=== PATIENT | female | born 1975 | race Caucasian/White ===

== ENCOUNTER 2016-09-30 17:29 | Observation (INO) | payer OTHER ==
[2016-09-30 17:29] VITALS: BMI 29.8
--- NOTE | 2016-09-30 17:44 | ED PDOC ---
HPI: Chest Pain Time Seen by Provider: 09/30/16 17:44 Chief Complaint (Nursing): Chest Pain Chief Complaint (Provider): chest pain History Per: Patient Additional Complaint(s): 41-year-old female presents to emergency Department with left-sided chest pain for the past 3 days. Patient complains of mild shortness of breath but denies dyspnea on exertion. No associated coughing or congestion. Patient denies any radiation of pain. She rates current pain as 5/10. Patient also states she has mild headache with no associated vision changes or dizziness. Past Medical History Reviewed: Historical Data, Nursing Documentation, Vital Signs Vital Signs: Last Vital Signs Temp 98.3 F 09/30/16 18:00 Pulse 72 09/30/16 17:48 Resp 16 09/30/16 17:36 BP 116/85 09/30/16 17:36 Pulse Ox 99 09/30/16 19:18 - Medical History PMH: Asthma, Pneumonia - Surgical History Other surgeries: abdominoplasty, hysterectomy - Family History Family History: States: CAD (mother) - Living Arrangements Living Arrangements: With Family - Social History Current smoker - smoking cessation education provided: No Alcohol: None Drugs: Denies - Home Medications Home Medications: Ambulatory Orders Medication Instructions Recorded No Known Home Med 09/30/16 - Allergies Allergies/Adverse Reactions: Allergies Allergy/AdvReac Type Severity Reaction Status Date / Time walnut Allergy RASH Verified 09/30/16 17:36 NELI Risk Score for UA/NSTEMI - NELI Risk Score Age > 64: NO 3 or more CAD Risk Factors: NO Known CAD (Stenosis greater than 50%): NO Aspirin use in past 7 days: NO Severe Angina: NO EKG ST changes greater than 0.5mm: NO Positive Cardiac Marker: NO NELI Score: 0 Risk %: 5% Curb-65 Severity Score - CURB-65 Severity Score Confusion: No Bun >19mg/dl (>7mmol/L): No Respiratory Rate greater than/equal to 30: No Systolic BP <90 or Diastolic BP less than/equal 60mmHg: No Age >64: No Curb-65 Score: 0 Percentage 30-day mortality: 0.6% Wells Criteria for PE - Wells Criteria for Pulmonary Embolism Clinical Signs and Symptoms of DVT: No P.E is #1 Diagnosis, or Equally Likely: No Heart Rate >100: No Immobilization at least 3 days;Surgery previous 4 weeks: No Previous, objectively diagnosed PE or DVT: No Hemoptysis: No Malignancy w/treatment within 6 months, or palliative: No Total Score: 0 Review of Systems ROS Statement: Except As Marked, All Systems Reviewed And Found Negative Constitutional: Negative for: Fever Cardiovascular: Positive for: Chest Pain. Negative for: Palpitations, Orthopnea , Edema, Light Headedness Respiratory: Positive for: Shortness of Breath (slight). Negative for: Cough, SOB with Exertion, Wheezing Gastrointestinal: Negative for: Nausea, Vomiting, Abdominal Pain Neurological: Positive for: Headache (mild). Negative for: Dizziness Physical Exam - Reviewed Nursing Documentation Reviewed: Yes Vital Signs Reviewed: Yes - Physical Exam Appears: Positive for: Well, Non-toxic, No Acute Distress Skin: Positive for: Normal Color. Negative for: Rash Eye Exam: Positive for: Normal appearance, EOMI, PERRL Cardiovascular/Chest: Positive for: Regular Rate, Rhythm. Negative for: Murmur Respiratory: Positive for: Normal Breath Sounds. Negative for: Wheezing, Respiratory Distress Extremity: Positive for: Normal ROM. Negative for: Pedal Edema Neurologic/Psych: Positive for: Alert, Oriented - Laboratory Results Result Diagrams: 09/30/16 18:17 09/30/16 18:17 Urine POC: Negative (had hysterectomy) - ECG Interpretation Of ECG: NSR 88b pm, no acute finding, reviewed by PA and ED attending. O2 Sat by Pulse Oximetry: 99 Pulse Ox Interpretation: Normal - Other Rad bedside chest X-Ray: Interpreted by Me, Viewed By Me X-Ray Interpretation: no infiltrate, no acute finding Medical Decision Making Medical Decision Makin41 year old with left sided chest pain Plan: EKG CXR CMP CBC Trop IVF PO tylenol Headache resolved with tylenol. PMD is Dr. Mayen, case was discussed with him , he states to admit patient to tele-obs. Patient is aware of and agrees with admission. Disposition - Clinical Impression Clinical Impression: Chest pain - Patient ED Disposition Is Patient to be Admitted: Yes - Disposition Disposition Time: 19:35 Condition: FAIR - Pt Status Changed To: Hospital Disposition Of: Observation - POA Present On Arrival: None Results - Lab Results Lab Results: 09/30/16 09/30/16 18:17 18:17 WBC 7.4 RBC 4.96 Hgb 13.8 Hct 42.1 MCV 84.8 MCH 27.9 MCHC 32.9 L RDW 13.8 Plt Count 207 MPV 10.1 Neut % (Auto) 58.1 Lymph % (Auto) 29.0 Bond % (Auto) 8.8 Eos % (Auto) 3.4 Baso % (Auto) 0.7 Neut # 4.3 Lymph # 2.2 Bond # 0.7 Eos # 0.3 Baso # 0.1 Sodium 136 Potassium 4.2 Chloride 104 Carbon Dioxide 22 Anion Gap 14 BUN 10 Creatinine 0.6 L Est GFR ( Amer) > 60 Est GFR (Non-Af Amer) > 60 Random Glucose 112 H Calcium 8.7 Total Bilirubin 0.5 AST 29 ALT 30 Alkaline Phosphatase 69 Troponin I < 0.0120 Total Protein 6.9 Albumin 3.9 Globulin 2.9 Albumin/Globulin Ratio 1.4
[2016-09-30] MEDS ORDERED: Sodium Chloride 0.9% 1,000 ML IV STA (17:55)
[2016-09-30 18:23] LABS: BASO # 0.1 K/uL (0.0-0.2); BASO % 0.7 % (0.0-2.0); EOS # 0.3 K/uL (0.0-0.7); EOS % 3.4 % (0.0-4.0); HEMATOCRIT 42.1 % (34.0-47.0); LYMPH # 2.2 K/uL (1.0-4.3); MEAN CELL VOLUME 84.8 fl (81.0-99.0); MEAN CORPUSCULAR HEMOGLOBIN 27.9 pg (27.0-31.0); MEAN CORPUSCULAR HGB CONC 32.9 g/dL (33.0-37.0); MEAN PLATELET VOLUME 10.1 fl (7.2-11.7); MONO # 0.7 K/uL (0.0-0.8); MONO % 8.8 % (0.0-10.0); NEUT # 4.3 K/uL (1.8-7.0); NEUT % 58.1 % (50.0-75.0); NRBC % 0.1 % (0.0-0.0); RED CELL DISTRIBUTION WIDTH 13.8 % (11.5-14.5); WHITE BLOOD COUNT 7.4 K/uL (4.8-10.8)
[2016-09-30 18:47] LABS: ALB/GLOB RATIO 1.4 (1.0-2.1); ALKALINE PHOSPHATASE 69 U/L (38-126); ALT/SGPT 30 U/L (9-52); AST/SGOT 29 U/L (14-36); BILIRUBIN,TOTAL 0.5 mg/dl (0.2-1.3); BLOOD UREA NITROGEN 10 mg/dl (7-17); CALCIUM 8.7 mg/dL (8.4-10.2); CARBON DIOXIDE 22 mmol/L (22-30); CHLORIDE 104 mmol/L (98-107); GFR AFRICAN-AMERICAN > 60; GLUCOSE,RANDOM 112 mg/dL (65-105); POTASSIUM 4.2 MMOL/L (3.6-5.0); SODIUM 136 mmol/l (132-148); TOTAL PROTEIN 6.9 G/DL (6.3-8.2)
[2016-10-01 07:46] VITALS: RESP 20
--- NOTE | 2016-10-01 08:57 | RAD ---
HISTORY: Chest pain. Portable study 19:13. COMPARISON: 06/18/2015. FINDINGS: LUNGS: No active pulmonary disease. PLEURA: No significant pleural effusion identified, no pneumothorax apparent. CARDIOVASCULAR: Normal. OSSEOUS STRUCTURES: No significant abnormalities. VISUALIZED UPPER ABDOMEN: Normal. OTHER FINDINGS: None. IMPRESSION: No active disease. No significant interval change compared to the prior examination(s). Concordant results with the preliminary interpretation rendered by the emergency department physician procedure.
[2016-10-01 12:10] VITALS: BP 123/85; PULSE 71; TEMP 97.7; O2SAT 99
--- NOTE | 2016-10-01 12:27 | CARD ---
APPROVED REPORT EKG Measurement Heart [id number] <Conclusion> Normal sinus rhythm Normal ECG
--- NOTE | 2016-10-01 13:12 | CP.PCM.HP ---
<Carolina Bolden - Last Filed: 10/01/16 14:08> History of Present Illness - History of Present Illness History of Present Illness: Evaluated with attending 41yo F with PMHx asthma and pneumonia admitted for chest pain. chest pain x3 days, a/w SOB, no radiation, currently resolved. Denies palpitations. reports some anxiety d/t recent PNA. PMHx: Asthma Allergies: NKDA Social Hx: Denied Smoking/Drugs/EtOH Present on Admission - Present on Admission Any Indicators Present on Admission: No Review of Systems - Constitutional Constitutional: absent: Chills, Fever - Cardiovascular Cardiovascular: Chest Pain - Respiratory Respiratory: Dyspnea - Gastrointestinal Gastrointestinal: absent: Abdominal Pain, Diarrhea, Nausea, Vomiting - Genitourinary Genitourinary: absent: Dysuria, Hematuria - Musculoskeletal Musculoskeletal: absent: Back Pain - Neurological Neurological: absent: Headaches Past Patient History - Infectious Disease Hx of Infectious Diseases: None - Past Medical History & Family History Past Medical History?: Yes - Past Social History Smoking Status: Never Smoked - CARDIAC Hx Cardiac Disorders: No - PULMONARY Hx Respiratory Disorders: Yes Hx Asthma: Yes Hx Pneumonia: Yes - NEUROLOGICAL Hx Neurological Disorder: No - HEENT Hx HEENT Problems: No - RENAL Hx Chronic Kidney Disease: No - ENDOCRINE/METABOLIC Hx Endocrine Disorders: No - HEMATOLOGICAL/ONCOLOGICAL Hx Blood Disorders: No Hx AIDS: No Hx Human Immunodeficiency Virus (HIV): No - INTEGUMENTARY Hx Dermatological Problems: No - MUSCULOSKELETAL/RHEUMATOLOGICAL Hx Falls: No - GASTROINTESTINAL Hx Gastrointestinal Disorders: No - GENITOURINARY/GYNECOLOGICAL Hx Genitourinary Disorders: No - PSYCHIATRIC Hx Psychophysiologic Disorder: No Hx Substance Use: No - SURGICAL HISTORY Hx Surgeries: Yes Hx Hysterectomy: Yes (partial) Other/Comment: Abdominoplasty - ANESTHESIA Hx Anesthesia: No Hx Anesthesia Reactions: No Hx Malignant Hyperthermia: No Meds Allergies/Adverse Reactions: Allergies Allergy/AdvReac Type Severity Reaction Status Date / Time walnut Allergy RASH Verified 09/30/16 17:36 Physical Exam - Constitutional Appears: Non-toxic, No Acute Distress - Head Exam Head Exam: ATRAUMATIC, NORMAL INSPECTION - Eye Exam Eye Exam: Normal appearance - ENT Exam ENT Exam: Mucous Membranes Moist - Neck Exam Neck exam: Positive for: Normal Inspection - Respiratory Exam Respiratory Exam: Clear to Auscultation Bilateral - Cardiovascular Exam Cardiovascular Exam: REGULAR RHYTHM - GI/Abdominal Exam GI & Abdominal Exam: Normal Bowel Sounds, Soft - Extremities Exam Extremities exam: Positive for: normal inspection - Neurological Exam Neurological exam: Alert, Oriented x3 - Skin Skin Exam: Dry, Warm Results - Vital Signs Recent Vital Signs: Last Vital Signs Temp 97.7 F 10/01/16 12:09 Pulse 71 10/01/16 12:09 Resp 20 10/01/16 12:09 BP 123/85 10/01/16 12:09 Pulse Ox 99 10/01/16 12:09 - Labs Result Diagrams: 09/30/16 18:17 09/30/16 18:17 Labs: Laboratory Results - last 24 hr 10/01/16 10/01/16 03:23 12:15 Troponin I 0.0620 < 0.0120 Assessment & Plan - Assessment and Plan (Free Text) Assessment: 41yo F with PMHx asthma and pneumonia admitted for chest pain. chest pain -ECHO -trend troponin -ASA asthma -c/w home meds DVT ppx -SCDs Decision To Admit - Pt Status Changed To: Hospital Disposition Of: Observation - . Bed Request Type: Telemetry Admitting Physician: Mukul Mayen <Mukul Mayen - Last Filed: 10/04/16 11:14> Results - Vital Signs Recent Vital Signs: Last Vital Signs Temp 97.7 F 10/01/16 12:09 Pulse 71 10/01/16 12:09 Resp 20 10/01/16 12:09 BP 123/85 10/01/16 12:09 Pulse Ox 99 10/01/16 12:09 - Labs Result Diagrams: 09/30/16 18:17 09/30/16 18:17 Assessment & Plan - Assessment and Plan (Free Text) Plan: I was present during evaluation and examined patient directly. I discussed with patient and Dr Figueroa and discharge patient same day. advised follow up in office, Mukul Mayen M.D.
--- NOTE | 2016-10-01 14:09 | CARD ---
APPROVED REPORT EXAM: Two-dimensional and M-mode echocardiogram with Doppler and color Doppler. Other Information Quality : GoodRhythm : NSR INDICATION Chest Pain 2D DIMENSIONS IVSd0.93 (0.7-1.1cm)LVDd3.77 (3.9-5.9cm) LVOT Diameter1.84 (1.8-2.4cm)PWd0.79 (0.7-1.1cm) IVSs0.97 (0.8-1.2cm)LVDs2.33 (2.5-4.0cm) FS (%) 38.2 %PWs0.95 (0.8-1.2cm) M-Mode DIMENSIONS Left Atrium (MM)3.53 (2.5-4.0cm)IVSd0.47 (0.7-1.1cm) Aortic Root3.00 (2.2-3.7cm)LVDd5.41 (4.0-5.6cm) Aortic Cusp Exc.1.68 (1.5-2.0cm)PWd0.74 (0.7-1.1cm) IVSs1.03 cmFS (%) 45 % LVDs2.97 (2.0-3.8cm)PWs1.18 cm Mitral Valve MV E Xgchaqzs49.5cm/sMV DECEL [id number] A Osxuaucv27.4cm/s MV IJM06fpY/A ratio1.0MVA (PHT)4.47cm2 TDI Lateral E' Peak V8.72cm/sMedial E' Peak V7.25cm/sE/Lateral E'7.7 E/Medial E'9.3 Pulmonary Valve PV Peak Wcuoesmq14.0cm/s LEFT VENTRICLE The left ventricle is normal in size. There is normal left ventricular wall thickness. The left ventricular function is normal. The left ventricular ejection - 75%. There is normal LV segmental wall motion. Transmitral Doppler flow pattern is Grade I-abnormal relaxation pattern. No left ventricle thrombus noted on this study. There is no ventricular septal defect visualized. There is no left ventricular aneurysm. There is no mass noted in the left ventricle. RIGHT VENTRICLE The right ventricle is normal size. There is normal right ventricular wall thickness. The right ventricular systolic function is normal. ATRIA The left atrium size is normal. There is no thrombus suspected in the left atrium. The right atrium size is normal. The interatrial septum is intact with no evidence for an atrial septal defect. AORTIC VALVE The aortic valve is normal in structure and function. No aortic regurgitation is present. There is no aortic valvular stenosis. MITRAL VALVE The mitral valve is normal in structure and function. There is no evidence of mitral valve prolapse. There is no mitral valve stenosis. Mitral regurgitation is trivial. TRICUSPID VALVE The tricuspid valve is normal in structure and function. There is trace tricuspid regurgitation. There is no tricuspid valve prolapse or vegetation. There is no tricuspid valve stenosis. PULMONIC VALVE The pulmonary valve is normal in structure and function. There is no pulmonic valvular regurgitation. GREAT VESSELS The aortic root is normal in size. The IVC is normal in size and collapses >50% with inspiration. PERICARDIAL EFFUSION The pericardium appears normal. There is no pleural effusion. <Conclusion> The left ventricle is normal in size and wall thickness. The left ventricular function is normal. The left ventricular ejection - 75%. The left atrium, right ventricle and right atrium are normal in size. The mitral, aortic and tricuspid valves are normal.
[2016-10-01] MEDS ORDERED: Albuterol 0.083% Inhal Sol (2.5 mg/3 mL) UD INH PRN (14:19)
--- NOTE | 2016-10-01 14:22 | CP.PCM.DIS ---
<Carolina Bolden - Last Filed: 10/01/16 14:20> Provider - Provider Date of Admission: 09/30/16 19:22 Attending physician: Mukul Mayen MD Time Spent in preparation of Discharge (in minutes): 20 Diagnosis - Discharge Diagnosis (1) Chest pain Status: Acute Hospital Course - Lab Results Lab Results: Most Recent Lab Values WBC 7.4 K/uL (4.8-10.8) 09/30/16 18:17 RBC 4.96 Mil/uL (3.80-5.20) 09/30/16 18:17 Hgb 13.8 g/dL (12.0-16.0) 09/30/16 18:17 Hct 42.1 % (34.0-47.0) 09/30/16 18:17 MCV 84.8 fl (81.0-99.0) 09/30/16 18:17 MCH 27.9 pg (27.0-31.0) 09/30/16 18:17 MCHC 32.9 g/dL (33.0-37.0) L 09/30/16 18:17 RDW 13.8 % (11.5-14.5) 09/30/16 18:17 Plt Count 207 K/uL (130-400) 09/30/16 18:17 MPV 10.1 fl (7.2-11.7) 09/30/16 18:17 Neut % (Auto) 58.1 % (50.0-75.0) 09/30/16 18:17 Lymph % (Auto) 29.0 % (20.0-40.0) 09/30/16 18:17 [place] % (Auto) 8.8 % (0.0-10.0) 09/30/16 18:17 Eos % (Auto) 3.4 % (0.0-4.0) 09/30/16 18:17 Baso % (Auto) 0.7 % (0.0-2.0) 09/30/16 18:17 Neut # 4.3 K/uL (1.8-7.0) 09/30/16 18:17 Lymph # 2.2 K/uL (1.0-4.3) 09/30/16 18:17 [place] # 0.7 K/uL (0.0-0.8) 09/30/16 18:17 Eos # 0.3 K/uL (0.0-0.7) 09/30/16 18:17 Baso # 0.1 K/uL (0.0-0.2) 09/30/16 18:17 Sodium 136 mmol/l (132-148) 09/30/16 18:17 Potassium 4.2 MMOL/L (3.6-5.0) 09/30/16 18:17 Chloride 104 mmol/L (98-107) 09/30/16 18:17 Carbon Dioxide 22 mmol/L (22-30) 09/30/16 18:17 Anion Gap 14 (10-20) 09/30/16 18:17 BUN 10 mg/dl (7-17) 09/30/16 18:17 Creatinine 0.6 mg/dL (0.7-1.2) L 09/30/16 18:17 Est GFR ( Amer) > 60 09/30/16 18:17 Est GFR (Non-Af Amer) > 60 09/30/16 18:17 POC Glucose (mg/dL) 118 mg/dL (65-110) H 09/30/16 17:50 Random Glucose 112 mg/dL (65-105) H 09/30/16 18:17 Calcium 8.7 mg/dL (8.4-10.2) 09/30/16 18:17 Total Bilirubin 0.5 mg/dl (0.2-1.3) 09/30/16 18:17 AST 29 U/L (14-36) 09/30/16 18:17 ALT 30 U/L (9-52) 09/30/16 18:17 Alkaline Phosphatase 69 U/L (38-126) 09/30/16 18:17 Troponin I < 0.0120 ng/mL (0.00-0.120) 10/01/16 12:15 Total Protein 6.9 G/DL (6.3-8.2) 09/30/16 18:17 Albumin 3.9 g/dL (3.5-5.0) 09/30/16 18:17 Globulin 2.9 gm/dL (2.2-3.9) 09/30/16 18:17 Albumin/Globulin Ratio 1.4 (1.0-2.1) 09/30/16 18:17 - Hospital Course Hospital Course: 41yo F with PMHx asthma and pneumonia admitted for chest pain. ECHO showed no abnormalities. Troponin x3 were negative. Chest pain resolved at time of d/c, may be 2/2 anxiety d/t recent pneumonia and pt felt similar symptoms when she was recently ill. Lung auscultation clear b/l. Discharge Exam - Head Exam Head Exam: ATRAUMATIC, NORMAL INSPECTION Discharge Plan - Follow Up Plan Condition: FAIR Disposition: HOME/ ROUTINE Instructions: Chest Pain (DC) Additional Instructions: follow up with PCP within [address] Figueroa and will follow up patient as outpatientt.. Mukul Mayen M.D. Referrals: Mukul Mayen MD [Staff Provider] - <Mukul Mayen - Last Filed: 10/04/16 11:14> Provider - Provider Date of Admission: 09/30/16 19:22 Attending physician: Mukul Mayen MD Hospital Course - Lab Results Lab Results: Most Recent Lab Values WBC 7.4 K/uL (4.8-10.8) 09/30/16 18:17 RBC 4.96 Mil/uL (3.80-5.20) 09/30/16 18:17 Hgb 13.8 g/dL (12.0-16.0) 09/30/16 18:17 Hct 42.1 % (34.0-47.0) 09/30/16 18:17 MCV 84.8 fl (81.0-99.0) 09/30/16 18:17 MCH 27.9 pg (27.0-31.0) 09/30/16 18:17 MCHC 32.9 g/dL (33.0-37.0) L 09/30/16 18:17 RDW 13.8 % (11.5-14.5) 09/30/16 18:17 Plt Count 207 K/uL (130-400) 09/30/16 18:17 MPV 10.1 fl (7.2-11.7) 09/30/16 18:17 Neut % (Auto) 58.1 % (50.0-75.0) 09/30/16 18:17 Lymph % (Auto) 29.0 % (20.0-40.0) 09/30/16 18:17 [place] % (Auto) 8.8 % (0.0-10.0) 09/30/16 18:17 Eos % (Auto) 3.4 % (0.0-4.0) 09/30/16 18:17 Baso % (Auto) 0.7 % (0.0-2.0) 09/30/16 18:17 Neut # 4.3 K/uL (1.8-7.0) 09/30/16 18:17 Lymph # 2.2 K/uL (1.0-4.3) 09/30/16 18:17 [place] # 0.7 K/uL (0.0-0.8) 09/30/16 18:17 Eos # 0.3 K/uL (0.0-0.7) 09/30/16 18:17 Baso # 0.1 K/uL (0.0-0.2) 09/30/16 18:17 Sodium 136 mmol/l (132-148) 09/30/16 18:17 Potassium 4.2 MMOL/L (3.6-5.0) 09/30/16 18:17 Chloride 104 mmol/L (98-107) 09/30/16 18:17 Carbon Dioxide 22 mmol/L (22-30) 09/30/16 18:17 Anion Gap 14 (10-20) 09/30/16 18:17 BUN 10 mg/dl (7-17) 09/30/16 18:17 Creatinine 0.6 mg/dL (0.7-1.2) L 09/30/16 18:17 Est GFR ( Amer) > 60 09/30/16 18:17 Est GFR (Non-Af Amer) > 60 09/30/16 18:17 POC Glucose (mg/dL) 118 mg/dL (65-110) H 09/30/16 17:50 Random Glucose 112 mg/dL (65-105) H 09/30/16 18:17 Calcium 8.7 mg/dL (8.4-10.2) 09/30/16 18:17 Total Bilirubin 0.5 mg/dl (0.2-1.3) 09/30/16 18:17 AST 29 U/L (14-36) 09/30/16 18:17 ALT 30 U/L (9-52) 09/30/16 18:17 Alkaline Phosphatase 69 U/L (38-126) 09/30/16 18:17 Troponin I < 0.0120 ng/mL (0.00-0.120) 10/01/16 12:15 Total Protein 6.9 G/DL (6.3-8.2) 09/30/16 18:17 Albumin 3.9 g/dL (3.5-5.0) 09/30/16 18:17 Globulin 2.9 gm/dL (2.2-3.9) 09/30/16 18:17 Albumin/Globulin Ratio 1.4 (1.0-2.1) 09/30/16 18:17
== END 2016-10-01 16:15 | disposition home or self-care (01) ==
LOC: H.ER 17:29 → H.ERHOLD 19:22 → H.TEL 23:06
PROVIDERS: ADMIT Family Medicine; ATTEND Family Medicine
DX: R07.9 Chest pain, unspecified (principal); J45.909 Unspecified asthma, uncomplicated; Z91.018 Allergy to other foods

== ENCOUNTER 2017-03-14 15:21 | Emergency (ER) | payer OTHER ==
[2017-03-14 15:21] VITALS: BMI 29.8
[2017-03-14 15:33] VITALS: BP 145/86; PULSE 79; RESP 16; TEMP 98.3; O2SAT 99
--- NOTE | 2017-03-14 15:59 | ED PDOC ---
HPI: Back Time Seen by Provider: 03/14/17 15:29 Chief Complaint (Nursing): Back Pain Chief Complaint (Provider): Neck and back pain History Per: Patient History/Exam Limitations: no limitations Onset/Duration Of Symptoms: Days (x2 weeks) Current Symptoms Are (Timing): Still Present Additional Complaint(s): Karla is a 41 y/o female who presents to the ED complaining of neck pain which radiates down to her lower back. Her neck is painful to the touch. She took Aleve 8 Hours at 7:30a. Of note patient has a history of high blood pressure and noticed it was more elevated than usual. Denies any direct injury or trauma. PMD: Mukul Mayen MD Past Medical History Reviewed: Historical Data, Nursing Documentation, Vital Signs Vital Signs: Last Vital Signs Temp 98.3 F 03/14/17 15:25 Pulse 79 03/14/17 15:25 Resp 16 03/14/17 15:25 BP 145/86 03/14/17 15:25 Pulse Ox 99 03/14/17 15:25 - Medical History PMH: Asthma, HTN, Pneumonia Denies: HIV, Chronic Kidney Disease - Surgical History Other surgeries: Hysterectomy - Family History Family History: States: CAD (mother) - Immunization History Hx Influenza Vaccination: Yes - Home Medications Home Medications: Ambulatory Orders Medication Instructions Recorded Cyclobenzaprine [Cyclobenzaprine 10 mg PO Q8H #20 tab 03/14/17 HCl] - Allergies Allergies/Adverse Reactions: Allergies Allergy/AdvReac Type Severity Reaction Status Date / Time walnut Allergy RASH Verified 09/30/16 17:36 Review of Systems ROS Statement: Except As Marked, All Systems Reviewed And Found Negative Musculoskeletal: Positive for: Neck Pain (Left sided), Back Pain Physical Exam - Reviewed Nursing Documentation Reviewed: Yes Vital Signs Reviewed: Yes - Physical Exam Appears: Positive for: Well, Non-toxic, No Acute Distress Head Exam: Positive for: ATRAUMATIC, NORMAL INSPECTION, NORMOCEPHALIC Skin: Positive for: Normal Color, Warm, DRY Eye Exam: Positive for: Normal appearance Neck: Positive for: Pain On Movement Of Neck Back: Positive for: Normal Inspection, Muscle Spasm (Left paraspinal cervical spine). Negative for: Vertebral Tenderness Neurologic/Psych: Positive for: Alert, Oriented - ECG O2 Sat by Pulse Oximetry: 99 (RA) Pulse Ox Interpretation: Normal Medical Decision Making Medical Decision Making: Time: 15:54 Initial Plan: - Cyclobenzaprine 10 mg PO - Ketorolac 60 mg IM - Cervical Spine AP & Lateral X-Ray results without acute abnormalities. XR discussed in detail with patient. All questions answered. Upon provider reevaluation patient is medically stable, and requires no further treatment in the ED at this time. Patient will be discharged home. Counseling was provided and all questions were answered regarding diagnosis and need for follow up with PMD. There is agreement to discharge plan. Return if symptoms persist or worsen. Scribe Attestation: Documented by He Meíja, acting as a scribe for Desi Harden PA-C Provider Scribe Attestation: All medical record entries made by the Scribe were at my direction and personally dictated by me. I have reviewed the chart and agree that the record accurately reflects my personal performance of the history, physical exam, medical decision making, and the department course for this patient. I have also personally directed, reviewed, and agree with the discharge instructions and disposition. Disposition - Clinical Impression Clinical Impression: Muscle spasm - Patient ED Disposition Is Patient to be Admitted: No Counseled Patient/Family Regarding: Diagnosis, Need For Followup, Rx Given - Disposition Disposition: Routine/Home Disposition Time: 17:34 Condition: GOOD Prescriptions: Cyclobenzaprine [Cyclobenzaprine HCl] 10 mg PO Q8H #20 tab Instructions: Muscle Spasm (ED) Forms: [employer] (Swedish), [employer] ED School/Work Excuse
--- NOTE | 2017-03-14 18:42 | RAD ---
PROCEDURE: Cervical Spine Radiographs. HISTORY: Pain. COMPARISON: None. FINDINGS: BONES: Alignment maintained. No fracture. Dens Intact. DISC SPACES: Mild degenerative changes primarily non marginal osteophyte formation C5-6 and C6-7. SOFT TISSUES: Normal. No prevertebral soft tissue swelling. OTHER FINDINGS: None. IMPRESSION: No acute findings related to/accounting for the clinical presentation. Additional benign and/or incidental findings described above. Please note: No preliminary report/ innterpretation of this examination provided by emergency department personnel.
== END 2017-03-14 18:07 | disposition home or self-care (01) ==
LOC: H.ER 15:21
DX: M54.2 Cervicalgia (principal)
CPT/HCPCS: 72040; 96372; 99282; J1885

== ENCOUNTER 2017-10-30 09:17 | Emergency (ER) | payer OTHER ==
[2017-10-30 09:20] VITALS: BMI 27.3
--- NOTE | 2017-10-30 09:29 | ED PDOC ---
HPI: Back Time Seen by Provider: 10/30/17 09:24 Chief Complaint (Nursing): Back Pain History Per: Patient Onset/Duration Of Symptoms: Other (2 weeks) Current Symptoms Are (Timing): Still Present Quality Of Discomfort: Aching Severity: Moderate Pain Scale Rating Of: 4 Previous Symptoms: Back Pain Associated Symptoms: None Exacerbating Factor(s): Movement, Sitting Additional Complaint(s): Low back pain across lower back radiating down both legs. Has been doing heavy lifting and pushing. No trauma. No weakness or parasthesia. No urinary sxs.No fever. Past Medical History Vital Signs: Last Vital Signs Temp 97.7 F 10/30/17 09:20 Pulse 79 10/30/17 09:20 Resp 17 10/30/17 09:20 BP 132/85 10/30/17 09:20 Pulse Ox 99 10/30/17 09:20 - Medical History PMH: Asthma, HTN, Pneumonia Denies: HIV, Chronic Kidney Disease - Family History Family History: States: Unknown Family Hx, CAD (mother) - Immunization History Hx Influenza Vaccination: Yes - Home Medications Home Medications: Ambulatory Orders Medication Instructions Recorded Cyclobenzaprine [Cyclobenzaprine 10 mg PO Q8H #20 tab 03/14/17 HCl] Cyclobenzaprine [Cyclobenzaprine 10 mg PO TID #10 tab 10/30/17 HCl] Lidocaine 5% [Lidoderm] 1 ea TD DAILY 7 Days #7 patch 10/30/17 Naproxen [Naprosyn] 500 mg PO Q12H #20 tab 10/30/17 - Allergies Allergies/Adverse Reactions: Allergies Allergy/AdvReac Type Severity Reaction Status Date / Time walnut Allergy RASH Verified 10/30/17 09:25 Review of Systems Constitutional: Negative for: Fever Genitourinary Female: Negative for: Dysuria, Frequency Musculoskeletal: Positive for: Back Pain Neurological: Negative for: Weakness, Numbness Physical Exam - Physical Exam Appears: Positive for: Non-toxic, Uncomfortable Skin: Positive for: Normal Color, Warm, DRY Gastrointestinal/Abdominal: Negative for: Tenderness Back: Positive for: Normal Inspection, Muscle Spasm (Bilat lumbar area). Negative for: Vertebral Tenderness Neurologic/Psych: Positive for: Alert, Oriented. Negative for: Motor/Sensory Deficits - ECG O2 Sat by Pulse Oximetry: 99 - Progress Re-evaluation Time: 14:00 Condition: Improved Disposition - Clinical Impression Clinical Impression: Back strain - Patient ED Disposition Is Patient to be Admitted: No Counseled Patient/Family Regarding: Studies Performed, Diagnosis, Need For Followup, Rx Given - Disposition [facility]errals: [facility] [Outside] Disposition: Routine/Home Disposition Time: 14:00 Condition: FAIR Prescriptions: Cyclobenzaprine [Cyclobenzaprine HCl] 10 mg PO TID #10 tab Lidocaine 5% [Lidoderm] 1 ea TD DAILY 7 Days #7 patch Naproxen [Naprosyn] 500 mg PO Q12H #20 tab Instructions: Muscle Strain (DC), Low Back Pain in Adults Forms: [facility] ([place])
[2017-10-30] MEDS ORDERED: Lidocaine 5% Patch TD STA (10:32)
--- NOTE | 2017-10-30 14:24 | CT ---
PROCEDURE: CT Abdomen and Pelvis without intravenous contrast HISTORY: r/o kidney stone COMPARISON: CT scan of the abdomen and pelvis dated 07/13/2015. TECHNIQUE: Contiguous images were obtained from the domes of the diaphragms to the upper thighs without the administration of intravenous contrast. Oral contrast was not administered. Radiation dose: Total exam DLP = 477.8 mGy-cm. This CT exam was performed using one or more of the following dose reduction techniques: Automated exposure control, adjustment of the mA and/or kV according to patient size, and/or use of iterative reconstruction technique. FINDINGS: LOWER THORAX: Unremarkable. LIVER: Unremarkable. No gross lesion or ductal dilatation. GALLBLADDER AND BILE DUCTS: Unremarkable. PANCREAS: Unremarkable. No gross lesion or ductal dilatation. SPLEEN: Unremarkable. ADRENALS: Unremarkable. No mass. KIDNEYS AND URETERS: Unremarkable. No hydronephrosis. No solid mass. VASCULATURE: Unremarkable. No aortic aneurysm. BOWEL: Unremarkable. No obstruction. No gross mural thickening. APPENDIX: Unremarkable. Normal appendix. PERITONEUM: Small fat containing umbilical hernia. Prior abdominoplasty. No free fluid. No free air. LYMPH NODES: Unremarkable. No enlarged lymph nodes. BLADDER: Unremarkable. REPRODUCTIVE: Unremarkable. BONES: No acute fracture. OTHER FINDINGS: None. IMPRESSION: No obstructive uropathy or evidence of recently passed genitourinary calculus No acute abdominal pelvic pathology.
[2017-10-30 14:53] VITALS: BP 110/70; PULSE 74; RESP 20; TEMP 98; O2SAT 98
[2017-10-31] MEDS ORDERED: Lidocaine 5% Patch TD SCH (09:00)
== END 2017-10-30 14:52 | disposition home or self-care (01) ==
LOC: H.ER 09:17
DX: S39.012A Strain of muscle, fascia and tendon of lower back, initial encounter (principal); X50.9XXA Other and unspecified overexertion or strenuous movements or postures, initial encounter; Y92.89 Other specified places as the place of occurrence of the external cause; I10 Essential (primary) hypertension; J45.909 Unspecified asthma, uncomplicated; Z82.49 Family history of ischemic heart disease and other diseases of the circulatory system
CPT/HCPCS: 74176; 96374; 99283; J1885; J2270

== ENCOUNTER 2017-11-13 12:55 | Emergency (ER) | payer OTHER ==
[2017-11-13 12:56] VITALS: BMI 27.3
[2017-11-13 13:07] VITALS: O2SAT 100
--- NOTE | 2017-11-13 13:40 | ED PDOC ---
HPI: Back Time Seen by Provider: 11/13/17 13:12 Chief Complaint (Nursing): Back Pain Chief Complaint (Provider): Back Pain History Per: Patient History/Exam Limitations: no limitations Onset/Duration Of Symptoms: Persistent (x3 weeks), Worse Since (today) Current Symptoms Are (Timing): Still Present Additional Complaint(s): 42 year old female with medical history of hypertension and asthma, presents to the emergency department with a complaint of persistent low back pain ongoing for 3 weeks but worsen this morning around 0800. Patient was seen in ED last week for similar symptom, in which, a CT was performed and revealed a pinch nerve. She currently takes Flexeril once daily, Naprosyn twice daily and has a Lidoderm patch for relief. She denies any painful urination, bloody urine, diarrhea, constipation, fever or chills. PMD: Mukul Mayen MD Past Medical History Reviewed: Historical Data, Nursing Documentation, Vital Signs Vital Signs: Last Vital Signs Temp 97.2 F L 11/13/17 13:02 Pulse 72 11/13/17 13:02 Resp 16 11/13/17 13:02 BP 125/84 11/13/17 13:02 Pulse Ox 100 11/13/17 13:02 - Medical History PMH: Asthma, HTN, Pneumonia Denies: HIV, Chronic Kidney Disease - Family History Family History: States: Unknown Family Hx, CAD (mother) - Immunization History Hx Influenza Vaccination: Yes - Home Medications Home Medications: Ambulatory Orders Medication Instructions Recorded Cyclobenzaprine [Cyclobenzaprine 10 mg PO Q8H #20 tab 03/14/17 HCl] Cyclobenzaprine [Cyclobenzaprine 10 mg PO TID #10 tab 10/30/17 HCl] Lidocaine 5% [Lidoderm] 1 ea TD DAILY 7 Days #7 patch 10/30/17 Naproxen [Naprosyn] 500 mg PO Q12H #20 tab 10/30/17 - Allergies Allergies/Adverse Reactions: Allergies Allergy/AdvReac Type Severity Reaction Status Date / Time walnut Allergy RASH Verified 10/30/17 09:25 Review of Systems ROS Statement: Except As Marked, All Systems Reviewed And Found Negative Constitutional: Negative for: Fever, Chills Gastrointestinal: Negative for: Diarrhea, Constipation Genitourinary Female: Negative for: Dysuria, Hematuria Musculoskeletal: Positive for: Back Pain (lower) Physical Exam - Reviewed Nursing Documentation Reviewed: Yes Vital Signs Reviewed: Yes - Physical Exam Appears: Positive for: Non-toxic, No Acute Distress Head Exam: Positive for: ATRAUMATIC, NORMAL INSPECTION, NORMOCEPHALIC Skin: Positive for: Normal Color Eye Exam: Positive for: Normal appearance Neck: Positive for: Normal Cardiovascular/Chest: Positive for: Regular Rate, Rhythm Respiratory: Positive for: Normal Breath Sounds. Negative for: Respiratory Distress Gastrointestinal/Abdominal: Positive for: Normal Exam, Soft. Negative for: Tenderness Back: Positive for: Vertebral Tenderness (right lumbar paraspinal), Muscle Spasm (right lumbar paraspinal on lateral rotation), Other (5/5 L5-S1 strength) Extremity: Positive for: Normal ROM (bilateral hip and knee joints). Negative for: Other ((-) straight leg raise bilaterally) Neurologic/Psych: Positive for: Alert, Oriented. Negative for: Motor/Sensory Deficits - ECG O2 Sat by Pulse Oximetry: 100 (RA) Pulse Ox Interpretation: Normal Medical Decision Making Medical Decision Making: Initial Impression: Muscle spasm Initial Plan: * Ultram 50mg PO Scribe Attestation: Documented by Gisela Hidalgo, acting as a scribe for Erica Dutta MD. Provider Scribe Attestation: All medical record entries made by the Scribe were at my direction and personally dictated by me. I have reviewed the chart and agree that the record accurately reflects my personal performance of the history, physical exam, medical decision making, and the department course for this patient. I have also personally directed, reviewed, and agree with the discharge instructions and disposition. 2:00p - patient's symptoms are muscular and is focus on the right paraspinal area. She is only taking Naprosyn and Flexeril daily. Advised to increase Naprosyn to 2 times a day and Flexeril 2-3 times per day. Disposition - Clinical Impression Clinical Impression: Muscle strain - Patient ED Disposition Is Patient to be Admitted: No Doctor Will See Patient In The: Office Counseled Patient/Family Regarding: Diagnosis, Need For Followup - Disposition Referrals: Mukul Mayen MD [Family Provider] - Disposition: Routine/Home Disposition Time: 14:00 Condition: STABLE Additional Instructions: Take Naprosyn (from Dr. Duque) two times daily and to increase the Flexeril to 2-3 times per day. Instructions: Muscle Strain, Low Back Pain in Adults Forms: [facility] (German) - POA Present On Arrival: None
[2017-11-13 14:37] VITALS: BP 114/74; PULSE 63; RESP 17; TEMP 97.7
== END 2017-11-13 14:30 | disposition home or self-care (01) ==
LOC: H.ER 12:55
DX: M54.9 Dorsalgia, unspecified (principal); J45.909 Unspecified asthma, uncomplicated; I10 Essential (primary) hypertension